=== PATIENT | female | born 1950 | race Caucasian/White ===

== ENCOUNTER 2018-03-23 23:35 | Inpatient (IN) | payer MEDICARE ==
[~2018-03-23] VITALS: Ht 157.5 cm; Wt 58.5 kg
[2018-03-24 00:28] LABS: BASOPHILS % (AUTO) 1.2 % (0.0-2.0); HEMATOCRIT 41.1 % (36-46); HEMOGLOBIN 14.2 g/dL (12.0-16.0); LYMPHOCYTES # (AUTO) 1.2 K/uL (1.0-4.8); MEAN CORPUSCULAR HEMOGLOBIN 28.4 pg (26.0-34.0); MEAN CORPUSCULAR HGB CONC 34.4 G/dL (31.0-37.0); MEAN CORPUSCULAR VOLUME 83 fL (80-100); MONOCYTES # (AUTO) 0.5 K/uL (0.1-1.0); MONOCYTES % (AUTO) 6.8 % (2.0-9.0); NEUTROPHILS # (AUTO) 5.2 K/uL (1.8-7.7); PLATELET COUNT (AUTO) 123 K/uL (150-450); RED BLOOD CELL COUNT(AUTO) 4.98 MIL/uL (4.00-5.20); RED CELL DISTRIBUTION WIDTH 13.4 % (11.5-14.5)
[2018-03-24 00:37] LABS: ANION GAP 6 mmol/L (8-16); CALCIUM, TOTAL 9.6 mg/dL (8.8-10.5); CARBON DIOXIDE 28 mmol/L (22-29); CHLORIDE 101 mmol/L (98-107); GLOMERULAR FILTR. RATE CALC > 60 mL/min (>60); GLUCOSE,RANDOM 238 mg/dL (70-110); SODIUM SERUM 135 mmol/L (136-145); UREA NITROGEN, BLOOD 15 mg/dL (7-18)
[2018-03-24 00:43] LABS: ALANINE AMINOTRANSFERASE 18 U/L (12-78); ALBUMIN 3.5 g/dL (3.4-5.0); ALKALINE PHOSPHATASE 91 U/L (46-116); ASPARTATE AMINOTRANSFERASE 18 U/L (15-37); BILIRUBIN,TOTAL 0.4 mg/dL (0.1-1.0); TOTAL PROTEIN, SERUM 8.3 g/dL (6.4-8.2)
[2018-03-24] MEDS ORDERED: LORazepam 2 MG TABLET PO PRN (03:15)
[2018-03-24] MEDS ORDERED: ZOLPIDEM TARTRATE 10 MG TABLET PO PRN (03:15)
[2018-03-24] MEDS ORDERED: HALOPERIDOL 5 MG TABLET PO PRN (03:15)
[2018-03-24 03:34] LABS: APPEARANCE,URINE CLEAR (CLEAR); GLUCOSE, URINE (UA) >=1000 mg/dL (NEGATIVE); KETONES,URINE TRACE mg/dL (NEGATIVE); LEUKOCYTE ESTERASE ,URINE NEGATIVE (NEGATIVE); NITRATE,URINE POSITIVE (NEGATIVE); OCCULT BLOOD,URINE SMALL (NEGATIVE); PH,URINE 5.5 (5.0-8.0); PROTEIN,URINE TRACE (NEGATIVE)
[2018-03-24 03:36] LABS: BILIRUBIN,URINE PRELIM. POSITIVE (NEGATIVE)
[2018-03-24 03:40] LABS: AMPHET/METH SCREEN,URINE NEGATIVE (NEGATIVE); BARBITURATE SCREEN, URINE NEGATIVE (NEGATIVE); BENZODIAZEPINES SCREEN,URINE NEGATIVE (NEGATIVE); CANNABINOID SCREEN,URINE NEGATIVE (NEGATIVE); COCAINE SCREEN,URINE NEGATIVE (NEGATIVE); METHADONE SCREEN, URINE NEGATIVE (NEGATIVE); OPIATE SCREEN,URINE NEGATIVE (NEGATIVE)
[2018-03-24 03:43] LABS: PHENCYCLIDINE SCREEN,URINE NEGATIVE (NEGATIVE)
[2018-03-24 03:55] LABS: BACTERIA,URINE Few /HPF (None Seen); SQUAMOUS EPITHELIAL CELL,UR Few /LPF (None Seen); WBC,URINE 0-2 /HPF (0-5)
[2018-03-24 05:33] VITALS: BP 135/77
[2018-03-24] MEDS ORDERED: PNEUMOCOCCAL VACCINE POLYVALENT 0.5 ML VIAL [PPSV23] IM ONE (06:00)
[2018-03-24] MEDS ORDERED: MAG HYDROX/AL HYDROX/SIMETH ES 30 ML SUSPENSION UDCUP PO PRN (06:15)
[2018-03-24] MEDS ORDERED: IBUPROFEN 400 MG TABLET PO PRN (06:15)
[2018-03-24] MEDS ORDERED: ONDANSETRON HCL 4 MG TABLET PO PRN (06:15)
[2018-03-24] MEDS ORDERED: LOPERAMIDE HCL 2 MG CAPSULE PO PRN (06:15)
[2018-03-24] MEDS ORDERED: ALBUTEROL SULFATE HFA 90 MCG/PUFF 8 GM INHALER IH PRN (06:15)
[2018-03-24] MEDS ORDERED: DOCUSATE SODIUM 100 MG CAPSULE PO PRN (06:15)
[2018-03-24] MEDS ORDERED: PETROLATUM,WHITE 71 GM JELLY TP PRN (06:15)
[2018-03-24] MEDS ORDERED: MAGNESIUM HYDROXIDE SUSPENSION 30 ML UDCUP PO PRN (06:15)
[2018-03-24 06:43] LABS: GLUCOMETER DEV NAME(LOC) 3EI B; GLUCOSE,POINT OF CARE 233 MG/DL (70-110)
[2018-03-24] MEDS: MetFORMIN HCL 500 MG TABLET PO SCH (07:02)
[2018-03-24 08:45] VITALS: BP 103/68
[2018-03-24] MEDS: NICOTINE 14 MG/24 HOUR PATCH TD SCH (14:16)
[2018-03-24 16:30] VITALS: BP 134/74
[2018-03-24] MEDS: RisperiDONE 0.5 MG TABLET PO SCH (17:00)
[2018-03-24 17:43] LABS: GLUCOMETER DEV NAME(LOC) 3EX 1; GLUCOSE,POINT OF CARE 249 MG/DL (70-110)
[2018-03-24 23:52] VITALS: BP 106/68
[2018-03-24] MEDS: ACETAMINOPHEN 325 MG TABLET PO PRN (23:52)
[2018-03-25 05:44] LABS: GLUCOMETER DEV NAME(LOC) 3EI B; GLUCOSE,POINT OF CARE 231 MG/DL (70-110)
[2018-03-25 06:25] LABS: CHOL/HDL RATIO 5.5 (3.9-5.7); THYROID STIMULATING HORMONE 1.18 uIU/mL (0.36-3.74)
[2018-03-25 06:39] LABS: HEMOGLOBIN A1C 9.1 % (4.5-6.2)
[2018-03-25] MEDS: MetFORMIN HCL 500 MG TABLET PO SCH (06:43)
[2018-03-25] MEDS: RisperiDONE 0.5 MG TABLET PO SCH ×2 (09:00→16:14)
[2018-03-25] MEDS: NICOTINE 14 MG/24 HOUR PATCH TD SCH (09:00)
[2018-03-25 09:46] VITALS: BP 95/60
[2018-03-25 10:38] LABS: FOLATE SERUM 9.3 ng/mL (5.4-)
[2018-03-25] MEDS: CIPROFLOXACIN HCL 250 MG TABLET PO SCH (16:14)
[2018-03-25 19:33] VITALS: BP 99/64
[2018-03-26 06:30] LABS: GLUCOMETER DEV NAME(LOC) 3EX 1; GLUCOSE,POINT OF CARE 235 MG/DL (70-110)
[2018-03-26] MEDS: MetFORMIN HCL 500 MG TABLET PO SCH ×2 (06:50→17:32)
[2018-03-26 07:14] VITALS: BP 113/84
[2018-03-26] MEDS: RisperiDONE 0.5 MG TABLET PO SCH ×2 (08:15→16:53)
[2018-03-26] MEDS: CIPROFLOXACIN HCL 250 MG TABLET PO SCH ×2 (08:15→16:51)
[2018-03-26 08:36] VITALS: BP 96/63
[2018-03-26] MEDS: NICOTINE 14 MG/24 HOUR PATCH TD SCH (09:00)
[2018-03-26 17:38] LABS: GLUCOMETER DEV NAME(LOC) 3EX 1; GLUCOSE,POINT OF CARE 154 MG/DL (70-110)
[2018-03-26 18:16] VITALS: BP 103/61
[2018-03-26 20:44] LABS: GLUCOMETER DEV NAME(LOC) 3EX 1; GLUCOSE,POINT OF CARE 275 MG/DL (70-110)
[2018-03-27 05:43] LABS: GLUCOMETER DEV NAME(LOC) PVLAB139; GLUCOSE,POINT OF CARE 240 MG/DL (70-110)
[2018-03-27 06:14] VITALS: BP 94/57
[2018-03-27] MEDS: MetFORMIN HCL 500 MG TABLET PO SCH ×2 (07:06→16:53)
[2018-03-27] MEDS: CIPROFLOXACIN HCL 250 MG TABLET PO SCH ×2 (08:31→16:53)
[2018-03-27] MEDS: RisperiDONE 0.5 MG TABLET PO SCH ×2 (08:31→16:54)
[2018-03-27] MEDS: NICOTINE 14 MG/24 HOUR PATCH TD SCH (09:00)
[2018-03-27 09:17] VITALS: BP 120/61
[2018-03-27 16:48] LABS: GLUCOMETER DEV NAME(LOC) 3EX 1; GLUCOSE,POINT OF CARE 247 MG/DL (70-110)
[2018-03-27 17:44] VITALS: BP 125/64
[2018-03-28 05:43] LABS: GLUCOMETER DEV NAME(LOC) PVLAB139; GLUCOSE,POINT OF CARE 222 MG/DL (70-110)
[2018-03-28] MEDS: MetFORMIN HCL 500 MG TABLET PO SCH ×2 (07:08→16:48)
[2018-03-28 07:20] VITALS: BP 125/66
[2018-03-28] MEDS: ACETAMINOPHEN 325 MG TABLET PO PRN (07:20)
[2018-03-28 08:05] VITALS: BP 125/66
[2018-03-28] MEDS: CIPROFLOXACIN HCL 250 MG TABLET PO SCH ×2 (08:38→16:05)
[2018-03-28] MEDS: NICOTINE 14 MG/24 HOUR PATCH TD SCH (08:39)
[2018-03-28] MEDS: RisperiDONE 0.5 MG TABLET PO SCH ×2 (08:39→16:05)
[2018-03-28 16:07] LABS: GLUCOMETER DEV NAME(LOC) 3EX 1; GLUCOSE,POINT OF CARE 198 MG/DL (70-110)
[2018-03-28 19:18] VITALS: BP 130/79
[2018-03-29 05:49] LABS: GLUCOMETER DEV NAME(LOC) PVLAB139; GLUCOSE,POINT OF CARE 231 MG/DL (70-110)
[2018-03-29] MEDS: MetFORMIN HCL 500 MG TABLET PO SCH ×2 (07:21→16:55)
[2018-03-29] MEDS: CIPROFLOXACIN HCL 250 MG TABLET PO SCH ×2 (08:34→16:27)
[2018-03-29] MEDS: RisperiDONE 0.5 MG TABLET PO SCH ×2 (08:35→16:27)
[2018-03-29 10:57] VITALS: BP 105/67
[2018-03-29 16:17] LABS: GLUCOMETER DEV NAME(LOC) 3EX 1; GLUCOSE,POINT OF CARE 232 MG/DL (70-110)
[2018-03-29 19:42] VITALS: BP 153/87
[2018-03-30 00:42] VITALS: BP 105/61
[2018-03-30 05:43] LABS: GLUCOMETER DEV NAME(LOC) PVLAB139; GLUCOSE,POINT OF CARE 182 MG/DL (70-110)
[2018-03-30] MEDS: MetFORMIN HCL 500 MG TABLET PO SCH ×2 (07:21→17:14)
[2018-03-30] MEDS: RisperiDONE 0.5 MG TABLET PO SCH ×2 (08:22→16:28)
[2018-03-30] MEDS: CIPROFLOXACIN HCL 250 MG TABLET PO SCH ×2 (08:22→16:27)
[2018-03-30 10:07] VITALS: BP 102/61
[2018-03-30 16:08] LABS: GLUCOMETER DEV NAME(LOC) 3EX 1; GLUCOSE,POINT OF CARE 187 MG/DL (70-110)
[2018-03-30 19:08] VITALS: BP 130/69
[2018-03-31 06:21] LABS: ANION GAP 5 mmol/L (8-16); CALCIUM, TOTAL 9.3 mg/dL (8.8-10.5); CARBON DIOXIDE 30 mmol/L (22-29); CHLORIDE 101 mmol/L (98-107); CREATININE 0.65 mg/dL (0.60-1.30); GLOMERULAR FILTR. RATE CALC > 60 mL/min (>60); GLUCOSE,RANDOM 260 mg/dL (70-110); POTASSIUM 4.4 mmol/L (3.5-5.1); SODIUM SERUM 136 mmol/L (136-145); UREA NITROGEN, BLOOD 16 mg/dL (7-18)
[2018-03-31] MEDS: MetFORMIN HCL 500 MG TABLET PO SCH ×2 (06:43→17:14)
[2018-03-31 06:48] LABS: GLUCOMETER DEV NAME(LOC) 3EX 1; GLUCOSE,POINT OF CARE 223 MG/DL (70-110)
[2018-03-31 08:09] VITALS: BP 121/63
[2018-03-31] MEDS: RisperiDONE 0.5 MG TABLET PO SCH ×2 (08:23→16:05)
[2018-03-31 16:48] LABS: GLUCOMETER DEV NAME(LOC) 3EX 1; GLUCOSE,POINT OF CARE 252 MG/DL (70-110)
[2018-03-31 17:01] VITALS: BP 115/70
[2018-04-01 06:38] LABS: GLUCOMETER DEV NAME(LOC) 3EX 1; GLUCOSE,POINT OF CARE 243 MG/DL (70-110)
[2018-04-01] MEDS: MetFORMIN HCL 500 MG TABLET PO SCH (06:52)
[2018-04-01 08:44] VITALS: BP 100/55
[2018-04-01] MEDS ORDERED: RISP.5 PO (09:21)
[2018-04-01] MEDS ORDERED: METF500T6 PO (09:22)
[2018-04-01] MEDS: RisperiDONE 0.5 MG TABLET PO SCH (09:45)
== END 2018-04-01 15:30 | disposition home or self-care (01) | DRG 885 ==
LOC: EMS 23:35 → 3EX 03-24 04:24
PROVIDERS: ADMIT Psychiatry & Neurology Psychiatry; ATTEND Psychiatry & Neurology Psychiatry
DX: F29 Unspecified psychosis not due to a substance or known physiological condition (principal); R45.851 Suicidal ideations; E87.1 Hypo-osmolality and hyponatremia; N39.0 Urinary tract infection, site not specified; E11.9 Type 2 diabetes mellitus without complications; R45.84 Anhedonia; M54.9 Dorsalgia, unspecified; F17.210 Nicotine dependence, cigarettes, uncomplicated; F41.9 Anxiety disorder, unspecified; Z91.19 Patient's noncompliance with other medical treatment and regimen; Z63.9 Problem related to primary support group, unspecified; Z79.84 Long term (current) use of oral hypoglycemic drugs
CPT/HCPCS: 70551; 82607; 82746; 83036; 84443; 99285; 99406; G0480